=== PATIENT | male | born 1980 | race Caucasian/White ===

== ENCOUNTER 2017-05-05 11:56 | Emergency (ER) | payer OTHER ==
[~2017-05-05] VITALS: Ht 177.8 cm; Wt 79.4 kg
--- NOTE | ~2017-05-05 | CR127 ---
[facility] A Service of [facility] & [facility] RADIOLOGY TEXT RESULTS PATIENT: LISS CHANEY LOCATION: SED : 82 UNIT #: [id number] AGE: [address]: BHARGAVI SILVERMAN PA-C SEX: M ORDER DR: [id number] [address] [address] [id number] MR#: [id number] Acc #: [id number] NAME: LISS CHANEY : 1980 SEX: M STUDY DATE/TIME: 05/05/2017 12:52 UNIT: SED ROOM: STUDY DESCRIPTION: CR Foot Complete Min 3 View Rt Attending Physician: Bhargavi Silverman Pa-C Ordering Physician: Physician Non-Staff Primary Care Physician: Primary Care Physician No MEDICAL IMAGING REPORT This report is preliminary unless electronic signature is present. EXAM Right foot 3 views, 05/05/2017 12:52 hours HISTORY Patient hit foot on doorframe today, pain and bruising at fourth digit COMPARISON None FINDINGS AP, lateral and oblique views demonstrate dorsal soft tissue swelling over the metatarsals. There is a corner fracture at the distal aspect proximal phalanx of the fifth toes extending into the proximal interphalangeal joint with minimal lateral displacement. No other fracture is seen. IMPRESSION There is a corner fracture of the distal aspect of the proximal phalanx of the fifth toe extending into the fifth PIP joint. Dictated by... Angelica Preston M.D. THIS IS AN ELECTRONICALLY VERIFIED REPORT Angelica Preston M.D. at 05/06/2017 9:27 AM Danyell TD: 05/05/2017 19:20 JOB #: [id number] MEDICAL IMAGING REPORT Page 1 of 1
[2017-05-05] MEDS ORDERED: OLANZAPINE10 MG PO (12:39)
[2017-05-05] MEDS ORDERED: DESYREL150 M1 PO (12:39)
[2017-05-05] MEDS ORDERED: TEMAZEPAM30 MG PO (12:39)
[2017-05-05] MEDS ORDERED: KEPPRA750 M1 PO (12:40)
[2017-05-05] MEDS ORDERED: OXCARBAZEPINE300 MG PO (12:40)
[2017-05-05] MEDS ORDERED: AZELASTINE137 MCG/01 (12:41)
[2017-05-05] MEDS ORDERED: ALL DAY ALLERGY10 MG PO (12:41)
[2017-05-05] MEDS ORDERED: ACID CONTROL150 MG PO (12:41)
[2017-05-05] MEDS ORDERED: DOK PLUS TABLE1 EACH (12:42)
[2017-05-05] MEDS ORDERED: MYLANTA GAS80 M2 PO (12:42)
[2017-05-05] MEDS ORDERED: MONTELUKAST SOD10 MG PO (12:42)
== END 2017-05-05 14:18 | disposition home or self-care (01) ==
LOC: SED 11:56
DX: S92.511A Displaced fracture of proximal phalanx of right lesser toe(s), initial encounter for closed fracture (principal); R56.9 Unspecified convulsions; Z98.890 Other specified postprocedural states; Z79.899 Other long term (current) drug therapy; W22.8XXA Striking against or struck by other objects, initial encounter; Y92.9 Unspecified place or not applicable
CPT/HCPCS: 29515; 73630; 99283